=== PATIENT | female | born 2000 | race Caucasian/White ===

== ENCOUNTER 2020-04-20 13:08 | Emergency (ER) | payer OTHER ==
[2020-04-20 13:22] VITALS: BP 106/80; PULSE 61; TEMP 98.3; BMI 20.5
[2020-04-20] MEDS ORDERED: ACETAMINOPHEN 325 MG TABLET (FP) PO ONE (15:18)
[2020-04-20] MEDS ORDERED: ACETAMINOPHEN 325 MG TABLET (FP) ONE (15:38)
[2020-04-20 15:40] LABS: BASO % 0.5 % (0-2.0); EOS % 0.6 % (0-4.5); HEMATOCRIT 37.5 % (32.4-45.2); HEMOGLOBIN 12.2 GM/dL (10.7-15.3); LYMPH % 16.2 % (8-40); MCH 28.1 pg (25.7-33.7); MCHC 32.6 g/dl (32.0-36.0); MEAN CELL VOLUME 86.2 fl (80-96); MEAN PLT VOLUME 8.9 fl (7.5-11.1); MONO % 4.4 % (3.8-10.2); NEUT % 78.3 % (42.8-82.8); PLATELET COUNT 217 K/MM3 (134-434); RBC 4.35 M/mm3 (3.60-5.2); RDW 14.4 % (11.6-15.6); WHITE BLOOD COUNT 10.1 K/mm3 (4.0-10.0)
--- NOTE | 2020-04-20 15:46 | PDOC ---
History of Present Illness - General Chief Complaint: Pain, Acute Stated Complaint: CHEST PAIN/SOB Time Seen by Provider: 04/20/20 14:50 History Source: Patient Exam Limitations: Clinical Condition - History of Present Illness Initial Comments: 04/20/20 15:43 Patient with no significant past medical history LMP January 31 @ 13.3 weeks presented with complaint of midsternal chest discomfort which she described as aching pain which began few weeks ago but is been persistently getting worse in the past 3 days. Patient report pain comes on when she sleeping at night or turn from sleeping and localized to mid sternum. Denies shortness of breath, palpitation, numbness or tingling sensation, vomiting, dizziness. Patient also report intermittent epigastric abdominal discomfort but does not have the pain now. Patient report went to OB department for first OB visit and was advised to come to the emergency room to check chest pain. Patient has not taken anything for chest pain. Denies family history of NE or cardiomyopathy. Denies recent travel or sick contact. Denies calf tenderness or swelling Is this a multiple visit Asthma Patient?: No Timing/Duration: getting worse Past History - Medical History Allergies/Adverse Reactions: Allergies Allergy/AdvReac Type Severity Reaction Status Date / Time No Known Allergies Allergy Verified 04/20/20 13:18 Home Medications: Ambulatory Orders Pantoprazole Sodium [Protonix -] 20 mg PO HS #30 tablet.ec 04/20/20 COPD: No - Reproductive History Is Patient Now?: No - Immunization History Immunization Up to Date: Yes - Psycho-Social/Smoking History Smoking History: Never smoked - Substance Abuse Hx (Audit-C & DAST Scrn) How often the patient has a drink containing alcohol: Never Score: In Men: 4 or > Positive; In Women: 3 or > Positive: 0 Screen Result (Pos requires Nsg. Audit-10AR): Negative In the last yr the pt used illegal drug/Rx for NonMed reason: No Score: Yes response is considered Positive: 0 Screen Result (Positive result requires Nsg. DAST-10): Negative Review of Systems - Review of Systems Able to Perform ROS?: Yes Is the patient limited Polish proficient: No Constitutional: No: Chills, Fever, Malaise HEENTM: No: Symptoms Reported, See HPI, Eye Pain, Blurred Vision, Tearing, Recent change in vision, Double Vision, Cataracts, Ear Pain, Ocular Prothesis, Ear Discharge, Nose Pain, Nose Congestion, Tinnitus, Nose Bleeding, Hearing Loss, Throat Pain, Throat Swelling, Mouth Pain, Dental Problems, Difficulty Swallowing, Mouth Swelling, Other Respiratory: No: Symptoms reported, See HPI, Cough, Orthopnea, Shortness of Breath, SOB with Exertion, SOB at Rest, Stridor, Wheezing, Productive cough, Hemoptysis, Other Cardiac (ROS): Yes: Symptoms Reported, See HPI, Chest Pain (Midsternal). No: Edema, Irregular Heart Rate, Lightheadedness, Palpitations, Syncope, Chest Tightness, Other ABD/GI: Yes: Symptoms Reported, See HPI. No: Constipated, Diarrhea, Poor Appetite, Vomiting, Indigestion, Abdominal cramping : No: Symptoms Reported, Burning, Dysuria, Discharge, Frequency, Flank Pain, Urgency All Other Systems: Reviewed and Negative *Physical Exam - Vital Signs Last Vital Signs Temp Pulse Resp BP Pulse Ox 98.3 F 61 18 106/80 99 04/20/20 13:18 04/20/20 13:18 04/20/20 13:18 04/20/20 13:18 04/20/20 13:18 - Physical Exam 04/20/20 15:53 GENERAL: Well developed, well nourished. Awake and alert. No acute distress. HEENT: Normocephalic, atraumatic. PERRLA, EOMI. No conjunctival pallor. Sclera are non-icteric. Moist mucous membranes. Oropharynx is clear. NECK: Supple. Full ROM. CARDIOVASCULAR: Mild reproducible lower midsternal tenderness over xyphoid process. Regular rate and rhythm. No murmurs, rubs, or gallops. Distal pulses are 2+ and symmetric. PULMONARY: No evidence of respiratory distress. Lungs clear to auscultation bilaterally. No wheezing, rales or rhonchi. ABDOMINAL: Soft. Non-tender. Non-distended. No rebound or guarding. No organomegaly. Normoactive bowel sounds. MUSCULOSKELETAL Normal range of motion at all joints. EXTREMITIES: No cyanosis. No clubbing. No edema. No calf tenderness. SKIN: Warm and dry. Normal capillary refill. No rashes. No jaundice. NEUROLOGICAL: Alert, awake, appropriate. Gait is normal without ataxia. PSYCHIATRIC: Cooperative. Good eye contact. Appropriate mood General Appearance: Yes: Nourished, Appropriately Dressed. No: Apparent Di stress ED Treatment Course - LABORATORY CBC & Chemistry Diagram: 04/20/20 15:30 04/20/20 15:30 - Medications Given in the ED: ED Medications Discontinued Medications Generic Name Dose Route Start Last Admin Trade Name James PRN Reason Stop Dose Admin Acetaminophen 650 mg 04/20/20 15:18 04/20/20 15:39 Tylenol - PO 04/20/20 15:19 650 mg ONCE ONE Administration Medical Decision Making - Medical Decision Making 04/20/20 15:49 Patient with no significant past medical history LMP January 31 @ 13.3 weeks p belle presented with complaint of midsternal chest discomfort which she described as aching pain which began few weeks ago but is been persistently getting worse in the past 3 days. Patient report pain comes on when she sleeping at night or turn from sleeping and localized to mid sternum. Denies shortness of breath, palpitation, numbness or tingling sensation, vomiting, dizziness. Patient also report intermittent epigastric abdominal discomfort but does not have the pain now. Patient also report past history of acid reflux but have not had acid reflux in a long time. Patient report went to OB department for first OB visit today and was advised to come to the emergency room to check chest pain. Patient has not taken anything for chest pain. Denies family history of NE or cardiomyopathy. Denies recent travel or sick contact. Denies calf tenderness or swelling Clinical exam unremarkable except mild reproducible lower midsternal chest tenderness. Normal cardio and lung exam. Patient in no acute distress. No abdominal tenderness on exam. CVAT negative bilateral. Patient symptoms likely GERD which is worsening with musculoskeletal pain. Tylenol 650 mg p.o. ordered for pain. EKG done shows normal sinus rhythm. Will do 1 cardiac profile, CBC and chemistry lab to rule out acute abnormality. If normal labs, will discharge home patient on Pepcid for GERD wit h strict follow-up instructions and cardiology follow-up. Discharge - Discharge Information Problems reviewed: Yes Clinical Impression/Diagnosis: Costochondral chest pain GERD (gastroesophageal reflux disease) Qualifiers: Esophagitis presence: without esophagitis Qualified Code(s): K21.9 - Gastro- esophageal reflux disease without esophagitis Condition: Stable Disposition: HOME - Admission No - Additional Discharge Information Prescriptions: Pantoprazole Sodium [Protonix -] 20 mg PO HS #30 tablet.ec - Follow up/Referral Referrals: Antony Nowak [Primary Care Provider] - Shahid Meraz MD [Staff Physician] - Nitish Aguero MD [Staff Physician] - - Patient Discharge Instructions Patient Printed Discharge Instructions: DI for Gastroesophageal Reflux Disease (GERD), Common Discomforts and Bodily Changes During Additional Instructions: Your blood work is normal. Your EKG is normal as well. Your pain is likely from acid reflux. Take prescribed medication as prescribed for acid reflux. Follow-up with referred buckshot swage operator if symptoms persist otherwise follow-up with your primary care Print Language: HUNGARIAN - Post Discharge Activity
[2020-04-20 16:15] LABS: BILIRUBIN,TOTAL 0.3 mg/dL (0.2-1); BLOOD UREA NITROGEN 5.2 mg/dL (7-18); CALCIUM 9.5 mg/dL (8.5-10.1); CREATININE 0.5 mg/dL (0.55-1.3); POTASSIUM 4.7 mmol/L (3.5-5.1); TOT PROT 7.6 g/dl (6.4-8.2)
--- NOTE | 2020-04-21 11:30 | EKG ---
Test Reason : Blood Pressure : / mmHG Vent. Rate : 050 BPM Atrial Rate : 050 BPM P-R Int : 134 ms QRS Dur : 074 ms QT Int : 444 ms P-R-T Axes : 051 056 033 degrees QTc Int : 404 ms SINUS BRADYCARDIA OTHERWISE NORMAL ECG NO PREVIOUS ECGS AVAILABLE Confirmed by Km Garcia MD ([id number]) on 04/21/2020 11:30:13 AM Referred By: Confirmed By:Km Garcia MD
== END 2020-04-20 16:29 | disposition home or self-care (01) ==
LOC: JER 13:08
DX: R07.9 Chest pain, unspecified (principal); K21.9 Gastro-esophageal reflux disease without esophagitis
CPT/HCPCS: 36415; 80053; 82550; 83690; 84484; 85025; 93005; 93010; 99284-25

== ENCOUNTER 2020-10-24 00:50 | Inpatient (IN) | payer OTHER ==
[2020-10-24] MEDS ORDERED: DINOPROSTONE 10 MG VAGINAL SUPPOSITORY VG ONE (03:20)
[2020-10-24] MEDS ORDERED: PROMETHAZINE HCL 25 MG/1 ML VIAL IVPUSH ONE (03:26)
[2020-10-24] MEDS ORDERED: BUTORPHANOL TARTRATE 1 MG/ML VIAL IVPB ONE ×2 (03:26→18:47)
[2020-10-24] MEDS ORDERED: SODIUM PHOSPHATE/NA BIPHOS 133 ML ENEMA RC ONE (03:29)
[2020-10-24] MEDS ORDERED: DEXTROSE 5%-LACTATED RINGERS 1,000 ML IV SCH (03:30)
[2020-10-24 04:12] LABS: BASO % 0.4 % (0-2.0); HEMATOCRIT 39.5 % (32.4-45.2); HEMOGLOBIN 12.8 GM/dL (10.7-15.3); LYMPH % 17.8 % (8-40); MCH 27.7 pg (25.7-33.7); MCHC 32.5 g/dl (32.0-36.0); MEAN CELL VOLUME 85.3 fl (80-96); MEAN PLT VOLUME 9.6 fl (7.5-11.1); MONO % 8.6 % (3.8-10.2); NEUT % 72.2 % (42.8-82.8); PLATELET COUNT 204 K/MM3 (134-434); RBC 4.63 M/mm3 (3.60-5.2); WHITE BLOOD COUNT 8.4 K/mm3 (4.0-10.0)
[2020-10-24 04:19] LABS: INR 0.88 (0.83-1.09); PROTHROMBIN TIME (PATIENT) 10.9 SEC (9.7-13.0)
[2020-10-24 04:22] LABS: ACTIVATED PTT 30.6 SECONDS (25.2-36.5)
[2020-10-24 04:26] LABS: POTASSIUM 3.8 mmol/L (3.5-5.1)
[2020-10-24 04:27] LABS: CALCIUM 8.5 mg/dL (8.5-10.1)
[2020-10-24 04:28] LABS: BLOOD UREA NITROGEN 8.7 mg/dL (7-18)
[2020-10-24 04:31] LABS: CREATININE 0.6 mg/dL (0.55-1.3)
[2020-10-24 06:27] LABS: HIV INTERPRETATION NEGATIVE (NEGATIVE)
[2020-10-24] MEDS ORDERED: AMPICILLIN SODIUM 2 GM VIAL ONE (16:55)
[2020-10-24] MEDS ORDERED: BUTORPHANOL TARTRATE 2 MG/ML VIAL ONE (18:28)
[2020-10-24] MEDS ORDERED: PROMETHAZINE HCL 25 MG/1 ML VIAL ONE (18:28)
[2020-10-24] MEDS ORDERED: PROMETHAZINE HCL 25 MG/1 ML VIAL IVPB ONE (18:47)
[2020-10-24] MEDS ORDERED: OXYTOCIN 30 UNITS in 0.9% NS 30 UNIT/500 ML INFUS.BAG IVPB ONE (19:04)
[2020-10-24] MEDS ORDERED: OXYTOCIN 30 UNITS in 0.9% NS 30 UNIT/500 ML INFUS.BAG IVPB SCH (19:15)
[2020-10-24] MEDS ORDERED: OXYTOCIN 20 UNITS in 0.9% NS 20 UNIT/1,000 ML INFUS.BAG IV ONE ×2 (20:03→21:36)
[2020-10-24] MEDS ORDERED: CEFAZOLIN 2 GM/D5W 2 GM/50 ML ML IVPB ONE (20:49)
[2020-10-24] MEDS ORDERED: METHYLERGONOVINE MALEATE 0.2 MG/1 ML AMP IM PRN (21:04)
[2020-10-24] MEDS ORDERED: BENZOCAINE 20% 57 GM BOTTLE TP PRN (21:04)
[2020-10-24] MEDS ORDERED: WITCH HAZEL 50% (TUCKS) 40 PAD/JAR PAD TP PRN (21:04)
[2020-10-24] MEDS ORDERED: BENZOCAINE 28 GM HEMORRHOIDAL OINTMENT TP PRN (21:04)
[2020-10-24 21:06] LABS: CORD BASE EXCESS -4.2 mmol/L (0-2); CORD HCO3 22.7 mmHg (20-29); CORD PCO2 48.7 mmHg (30-78); CORD pH 7.287 (7.14-7.44)
[2020-10-24] MEDS ORDERED: DOCUSATE SODIUM 100 MG CAPSULE (FP) PO ONE (21:08)
[2020-10-24] MEDS ORDERED: ceFAZolin 2 GRAM PREMIX BAG IVPB ONE (21:15)
[2020-10-24] MEDS ORDERED: OXYTOCIN 20 UNITS in 0.9% NS 20 UNIT/1,000 ML INFUS.BAG IV SCH (21:15)
[2020-10-25 08:17] LABS: BASO % 0.2 % (0-2.0); HEMATOCRIT 29.7 % (32.4-45.2); HEMOGLOBIN 9.7 GM/dL (10.7-15.3); LYMPH % 8.5 % (8-40); MCH 27.8 pg (25.7-33.7); MCHC 32.8 g/dl (32.0-36.0); MEAN CELL VOLUME 84.6 fl (80-96); MEAN PLT VOLUME 9.6 fl (7.5-11.1); MONO % 6.6 % (3.8-10.2); NEUT % 84.7 % (42.8-82.8); PLATELET COUNT 202 K/MM3 (134-434); RBC 3.51 M/mm3 (3.60-5.2); RDW 15.8 % (11.6-15.6); WHITE BLOOD COUNT 19.3 K/mm3 (4.0-10.0)
[2020-10-25] MEDS: ACETAMINOPHEN 325 MG TABLET (FP) PO PRN ×2 (08:24→17:38)
[2020-10-25] MEDS: IBUPROFEN 600 MG TABLET (FP) PO PRN ×2 (08:25→17:38)
[2020-10-25] MEDS: PRENATAL VITAMINS W/ FOLIC ACID TABLET (FP) PO SCH (10:17)
[2020-10-25] MEDS ORDERED: SENNOSIDES/DOCUSATE COMBO (SENNA PLUS) TABLET (UD) PO PRN (22:00)
[2020-10-26] MEDS: IBUPROFEN 600 MG TABLET (FP) PO PRN ×2 (00:16→10:16)
[2020-10-26] MEDS: ACETAMINOPHEN 325 MG TABLET (FP) PO PRN ×2 (00:17→10:16)
[2020-10-26 09:18] VITALS: BP 90/56; PULSE 59; TEMP 97.6
[2020-10-26] MEDS: PRENATAL VITAMINS W/ FOLIC ACID TABLET (FP) PO SCH (10:16)
== END 2020-10-26 17:00 | disposition home or self-care (01) | DRG 560 ==
LOC: JLDR 00:50 → J3W 23:34
PROVIDERS: ADMIT Obstetrics & Gynecology; ATTEND Obstetrics & Gynecology
PROC: 10E0XZZ Delivery of Products of Conception, External Approach (ICD-10-PCS; principal; 2020-10-24)
PROC: 0W8NXZZ Division of Female Perineum, External Approach (ICD-10-PCS; 2020-10-24)
PROC: 3E0P7VZ Introduction of Hormone into Female Reproductive, Via Natural or Artificial Opening (ICD-10-PCS; 2020-10-24)
PROC: 10907ZC Drainage of Amniotic Fluid, Therapeutic from Products of Conception, Via Natural or Artificial Opening (ICD-10-PCS; 2020-10-24)
DX: O41.03X0 Oligohydramnios, third trimester, not applicable or unspecified (principal); Z3A.40 40 weeks gestation of pregnancy; Z37.0 Single live birth
CPT/HCPCS: 36415; 36600; 59409; 80048; 82803; 85025; 85610; 85730; 86762; 86780; 86850; 86900; 86901; 87340; 87389; C9803; U0003